=== PATIENT | male | born 1980 | race Caucasian/White ===

== ENCOUNTER 2024-09-27 15:20 | Emergency (ER) | payer OTHER, SELFPAY ==
[2024-09-27] MEDS ORDERED: Lidocaine 1% w/Epinephrine 1:100K 20 ML VIAL ONE (15:35)
[2024-09-27] MEDS ORDERED: Bacitracin 1 PK ONE (15:46)
== END 2024-09-27 16:27 | disposition home or self-care (01) ==
LOC: MADERS 15:20
DX: S01.01XA Laceration without foreign body of scalp, initial encounter (principal); W07.XXXA Fall from chair, initial encounter; Y93.89 Activity, other specified
CPT/HCPCS: 12002; 70450